=== PATIENT | female | born 1975 | race Caucasian/White ===

== ENCOUNTER 2023-09-27 16:59 | Emergency (ER) | payer MEDICAID ==
[~2023-09-27] VITALS: Ht 154.9 cm; Wt 59.0 kg
[2023-09-27 17:11] VITALS: BP_SYST 110; PULSE 75; RESP 18; TEMP 96.9; O2SAT 96
[2023-09-27 18:21] VITALS: BP_SYST 113; PULSE 80; RESP 17; TEMP 97.5; O2SAT 99
== END 2023-09-27 18:21 | disposition home or self-care (01) ==
LOC: SED 16:59
DX: S93.401A Sprain of unspecified ligament of right ankle, initial encounter (principal); W22.8XXA Striking against or struck by other objects, initial encounter; Y93.89 Activity, other specified; Y92.89 Other specified places as the place of occurrence of the external cause; Y99.8 Other external cause status
CPT/HCPCS: 99283